=== PATIENT | male | born 1945 | race Caucasian/White ===

== ENCOUNTER 2017-06-15 10:32 | Day surgery (SDC) | payer MEDICARE ==
[2017-06-15] MEDS ORDERED: Lactated Ringer's 1,000 ML IV ONE (11:04)
[2017-06-15] MEDS ORDERED: Propofol 10 mg/ml Inj (20 ML) ONE (11:53)
[2017-06-15 12:35] VITALS: BP 138/81; PULSE 63; RESP 13; TEMP 97.4; O2SAT 100
== END 2017-06-15 13:19 | disposition home or self-care (01) ==
LOC: H.ENDO 10:32
PROVIDERS: ATTEND Internal Medicine Gastroenterology
DX: K92.1 Melena (principal); K57.30 Diverticulosis of large intestine without perforation or abscess without bleeding
CPT/HCPCS: 45378; J2704; J7120